=== PATIENT | male | born 1985 | race African-American/Black ===

== ENCOUNTER 2018-05-29 13:34 | Emergency (ER) | payer BC ==
[2018-05-29] MEDS: ACETAMINOPHEN 500 MG TAB PO (14:01)
== END 2018-05-29 17:17 | disposition home or self-care (01) ==
LOC: FTE 13:34
DX: R51 Headache (principal); M54.9 Dorsalgia, unspecified; M54.2 Cervicalgia; Z87.891 Personal history of nicotine dependence
CPT/HCPCS: 70450; 71046; 72100; 72125; 99284-25